=== PATIENT | female | born 1960 | race Caucasian/White ===

== ENCOUNTER → 2020-09-08 | Day surgery (SDC) | payer MEDICARE, MEDICAID | LOC: MSO 07:54 | DX: H26.8 Other specified cataract (principal); I10 Essential (primary) hypertension; M06.9 Rheumatoid arthritis, unspecified; Z79.899 Other long term (current) drug therapy; K21.9 Gastro-esophageal reflux disease without esophagitis | CPT/HCPCS: 00142; J0171; J2250; V2632 ==

== ENCOUNTER → 2020-10-13 | Day surgery (SDC) | payer MEDICARE, MEDICAID | LOC: MSO 09:45 | DX: H25.812 Combined forms of age-related cataract, left eye (principal); M06.9 Rheumatoid arthritis, unspecified; I10 Essential (primary) hypertension; K21.9 Gastro-esophageal reflux disease without esophagitis; E66.01 Morbid (severe) obesity due to excess calories; Z86.73 Personal history of transient ischemic attack (TIA), and cerebral infarction without residual deficits; Z96.649 Presence of unspecified artificial hip joint; Z79.891 Long term (current) use of opiate analgesic; Z79.899 Other long term (current) drug therapy; Z91.048 Other nonmedicinal substance allergy status; Z68.43 Body mass index [BMI] 50.0-59.9, adult | CPT/HCPCS: 00142; J0171; J2250; V2632 ==